=== PATIENT | male | born 1990 | race Caucasian/White ===

== ENCOUNTER 2017-01-12 00:17 | Emergency (ER) | payer BC ==
[2017-01-12 00:31] VITALS: TEMP 35.8
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
[2017-01-12] MEDS: ONDANSETRON INJ 2 MG/ML 2 ML VIAL ONE ×2 (00:44→00:49)
[2017-01-12] MEDS ORDERED: LORAZEPAM 2 MG/ML 1 ML VIAL ONE ×3 (00:45→03:28)
[2017-01-12] MEDS ORDERED: OPTIRAY 320 IV PRN (00:45)
[2017-01-12] MEDS ORDERED: HALOPERIDOL LACTATE 5 MG/ML 1 ML VIAL ONE (00:53)
[2017-01-12 00:57] LABS: HEMATOCRIT 42.5 % (42-52); MEAN CELL VOLUME 86.6 fL (80-100); MEAN CORPUSCULAR HEMOGLOBIN 29.5 pg (25-34); MEAN CORPUSCULAR HGB CONC 34.1 g/dl (32-36); MEAN PLATELET VOLUME 8.7 fL (7.4-10.4); PLATELET COUNT 276 K/uL (130-400); RED BLOOD COUNT 4.91 M/uL (4.7-6.1)
[2017-01-12 01:26] LABS: BLOOD UREA NITROGEN 9 mg/dl (7-18); BUN/CREATININE RATIO 8.9 (10-20); CALCIUM 8.6 mg/dl (8.5-10.1); CARBON DIOXIDE 25 mmol/L (21-32); CHLORIDE 109 mmol/L (98-107); CREATININE 1.07 mg/dl (0.60-1.40); GLUCOSE 113 mg/dl (70-99); SODIUM 141 mmol/L (136-145)
[2017-01-12] MEDS ORDERED: PATIENT'S ALLERGY INFO NEEDS ENTERED STA (01:57)
[2017-01-12 03:18] VITALS: BP 102/71; PULSE 104; O2SAT 97
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
== END 2017-01-12 03:37 | disposition short-term general hospital (02) ==
LOC: EDBD 00:17 → C.EDA 00:18
DX: T51.91XA Toxic effect of unspecified alcohol, accidental (unintentional), initial encounter (principal); S02.401A Maxillary fracture, unspecified side, initial encounter for closed fracture; S02.82XA Fracture of other specified skull and facial bones, left side, initial encounter for closed fracture; S52.92XA Unspecified fracture of left forearm, initial encounter for closed fracture; S09.90XA Unspecified injury of head, initial encounter; X58.XXXA Exposure to other specified factors, initial encounter; Y92.89 Other specified places as the place of occurrence of the external cause